=== PATIENT | female | born 1955 | race Caucasian/White ===

== ENCOUNTER 2021-05-17 05:43 | Day surgery (SDC) | payer MEDICARE, BC ==
[2021-05-10 11:11] LABS: BASOPHILS % (AUTO) 0.7 % (0-1); EOSINOPHILS % (AUTO) 0.6 % (0-6); LYMPHOCYTES # (AUTO) 1.5 X10'3 (1.1-4.8); LYMPHOCYTES % (AUTO) 23.9 % (21-51); MEAN CORPUSCULAR HEMOGLOBIN 26.5 PG (27.0-31.0); MEAN CORPUSCULAR HGB CONC 32.7 g/dL (33.0-36.5); MEAN CORPUSCULAR VOLUME 81.2 FL (78-98); MEAN PLATELET VOLUME 9.1 FL (7.4-10.4); MONOCYTES # (AUTO) 0.5 X10'3 (0-0.9); MONOCYTES % (AUTO) 8.4 % (2-12); NEUTROPHILS # (AUTO) 4.2 X10'3 (1.8-7.7); NEUTROPHILS % (AUTO) 66.4 % (42-75); PRE OP HEMATOCRIT 44.9 % (35.0-45.0); PRE OP HEMOGLOBIN 14.7 g/dL (12.0-16.0); PRE OP PLATELET COUNT 291 X10'3 (140-440); RED BLOOD COUNT 5.53 X10'6 (4.20-5.60); RED CELL DISTRIBUTION WIDTH 14.6 % (11.5-14.5)
[2021-05-10 11:44] LABS: ALBUMIN 3.5 G/DL (3.4-5.0); ALKALINE PHOSPHATASE 93 IU/L (46-116); BLOOD UREA NITROGEN 20 MG/DL (7-18); BUN/CREATININE RATIO 25.6 (6.6-38.0); CALCIUM 9.1 MG/DL (8.5-10.1); CHLORIDE 108 MMOL/L (99-107); CREATININE 0.78 MG/DL (0.40-0.90); PRE OP ALT 21 U/L (30-65); PRE OP ANION GAP 7 (8-16); PRE OP AST 12 U/L (10-37); PRE OP BILIRUB, TOTAL 0.3 MG/DL (0.0-1.0); PRE OP GLUCOSE 106 MG/DL (70-104); PRE OP POTASSIUM 4.2 MMOL/L (3.4-5.1); PRE OP SODIUM 143 MMOL/L (135-145); TOTAL CARBON DIOXIDE 28.2 MMOL/L (24-32); TOTAL PROTEIN 7.1 G/DL (6.4-8.2); eGFR 74 ML/MIN
[~2021-05-17] VITALS: Ht 177.8 cm; Wt 106.0 kg
[2021-05-17] VITALS (22 sets, daily range): BP systolic 100–185; BP diastolic 51–100
[~2021-05-17 05:43] MED LIST: LEVO175T2 PO; VANCOMYCIN 1,500MG inj. 1,500 MG in dextrose 5% water 500ml 300 ML IV ONE; acetaminophen 325mg tablet PO ONE; cefazolin/dext.iso 2gm/50ml 50 ML IV ONE; cefazolin/dext.iso 2gm/50ml IV ONE; celeCOXIB 100mg capsule PO ONE; famotidine 20mg tablet PO ONE; gabapentin 300mg capsule PO ONE; metoclopramide 5 mg/ml inj IV ONE; oxyCODONE SR 10mg (sust. release) tab -2 tabs (20mg) PO ONE; ringers solution, lacted 1,000 ML IV SCH; tranexamic acid inj. 1,000 MG in 0.7% saline 100 ML PMX IV ONE
[2021-05-17] MEDS ORDERED: ketorolac trometh. 30mg/ml inj. ONE (06:26)
[2021-05-17] MEDS ORDERED: cloNIDine hcl/PF 100mcg/ml inj ONE (06:26)
[2021-05-17] MEDS ORDERED: ROPIVAcaine 0.5% (5mg/ml) 30ml vial ONE (06:27)
[2021-05-17] MEDS ORDERED: HYDROmorphone inj. 0.5 MG/0.5 ML DISP.SYRIN IV PRN (06:30)
[2021-05-17] MEDS ORDERED: bisacodyl 10mg suppository rectal RC PRN (06:30)
[2021-05-17] MEDS ORDERED: HYDROmorphone 1 mg/ml syringe IV PRN (06:30)
[2021-05-17] MEDS ORDERED: magnesium hydroxide 30ml (MOM) UD suspension PO PRN (06:30)
[2021-05-17] MEDS ORDERED: ondansetron/PF 4mg/2ml inj IV PRN (06:30)
[2021-05-17] MEDS ORDERED: diphenhydrAMINE 25mg capsule PO PRN ×2 (06:30)
[2021-05-17] MEDS ORDERED: HYDROcodone/acetaminophen 10/325mg tab PO PRN (06:30)
[2021-05-17] MEDS ORDERED: acetaminophen 325mg tablet PO PRN (06:30)
[2021-05-17] MEDS ORDERED: BUPIVAcaine/dex-water/PF 7.5 mg/ml 2ml ampul ONE (08:23)
[2021-05-17] MEDS ORDERED: MIDAZolam 1 MG/ML 5ML VIAL ONE (08:26)
[2021-05-17] MEDS ORDERED: propofol inj 20 ML IV ONE ×2 (08:57)
[2021-05-17] MEDS ORDERED: ePHEDrine 50MG/ML INJ. ONE (08:57)
[2021-05-17] MEDS ORDERED: vancomycin 1,000mg inj ONE (09:11)
[2021-05-17] MEDS ORDERED: proCHLORperazine 10 MG/2 ml inj IV PRN (09:50)
[2021-05-17] MEDS ORDERED: morphine 4 MG/ML inj SYRINge IV PRN (09:50)
[2021-05-17] MEDS ORDERED: acetaminophen 1,000mg/100ml IV 100 ML IV PRN (09:50)
[2021-05-17] MEDS ORDERED: meperidine/PF 25mg/ml syringe IV PRN ×3 (09:50)
[2021-05-17] MEDS ORDERED: morphine 2 MG/ML inj. syringe IV PRN (09:50)
[2021-05-17] MEDS ORDERED: ringers solution, lacted 1,000 ML IV SCH (09:50)
[2021-05-17] MEDS ORDERED: proMETHazine 25mg rectal suppository RC PRN (09:50)
--- NOTE | 2021-05-17 10:02 | NUR ---
Received from OR via [facility], accompanied by Anesthesiologist DR BERRIOS and report given by Anesthesiolgist. PT PRESENTS WITH 18G LEFT AC, SHAWN DRESSING WITH POWDER PACK ON RIGHT HIP, VSS. Addendum: 05/17/21 at 1015 by Adrianne Marques RN, RN Amended: Links added.
--- NOTE | 2021-05-17 11:22 | NUR ---
Report called to receiving nurse STACIA ANDUJAR. Transferred via [facility] BED TO ROOM 350B Belongings TAKEN TPO PT ROOM 1 BAG. Special Issues communicated to receiving nurse. Addendum: 05/17/21 at 1135 by Adrianne Marques RN, RN Amended: Links added.
--- NOTE | 2021-05-17 12:09 | NUR ---
Patient arrived to unit from PACU accompanied Nurse and Spouse. Patient is Alert and orientedX4. Vital signs are B/P106/56 R 16 O2 100% T 97.4 Pulses palpated equal bilaterally Patient denies any pain or discomfort at this time.
[2021-05-17] MEDS ORDERED: tranexamic acid 1gm/0.7% sal. 100 ML IV ONE (13:00)
[2021-05-17] MEDS: levoTHYROXINE 175mcg tablet PO SCH (16:00)
[2021-05-17] MEDS ORDERED: aspirin 325mg tablet PO SCH (16:00)
[2021-05-17] MEDS: multivitamins, therapeutics tablet PO SCH (16:42)
[2021-05-17] MEDS: cefazolin/dext.iso 2gm/50ml 50 ML IV SCH ×2 (16:43→23:46)
[2021-05-17] MEDS ORDERED: VANCOMYCIN 1,500MG inj. 1,500 MG in dextrose 5% water 500ml 300 ML IV SCH (19:00)
[2021-05-17] MEDS: HYDROcodone/acetaminophen 10/325mg tab PO PRN (19:51)
[2021-05-17] MEDS: ascorbic acid 500mg tablet PO SCH (19:51)
[2021-05-17] MEDS: potassium cl 20mEq in 1/2 NS 1,000 ML IV SCH ×2 (19:56→22:30)
[2021-05-17] MEDS ORDERED: sennosides 8.6mg tablet PO SCH (21:00)
[2021-05-17] MEDS: gabapentin 300mg capsule PO SCH (21:24)
[2021-05-18 00:12] VITALS: BP 123/49
[2021-05-18 04:00] VITALS: BP 134/66
[2021-05-18] MEDS: HYDROcodone/acetaminophen 10/325mg tab PO PRN (05:02)
--- NOTE | 2021-05-18 05:49 | NUR ---
late entry 05/17/21 7813 surgical brace applied
[2021-05-18] MEDS: potassium cl 20mEq in 1/2 NS 1,000 ML IV SCH (06:30)
[2021-05-18 06:43] LABS: BASOPHILS % (AUTO) 0.4 % (0-1); EOSINOPHILS # (AUTO) 0.2 X10'3 (0-0.9); EOSINOPHILS % (AUTO) 2.8 % (0-6); HEMATOCRIT 39.1 % (35.0-45.0); HEMOGLOBIN 12.7 g/dl (12.0-16.0); LYMPHOCYTES # (AUTO) 1.1 X10'3 (1.1-4.8); LYMPHOCYTES % (AUTO) 20.8 % (21-51); MEAN CORPUSCULAR HEMOGLOBIN 26.7 PG (27.0-31.0); MEAN CORPUSCULAR HGB CONC 32.6 g/dL (33.0-36.5); MEAN CORPUSCULAR VOLUME 81.9 FL (78-98); MEAN PLATELET VOLUME 9.6 FL (7.4-10.4); MONOCYTES # (AUTO) 0.7 X10'3 (0-0.9); MONOCYTES % (AUTO) 12.6 % (2-12); NEUTROPHILS # (AUTO) 3.5 X10'3 (1.8-7.7); NEUTROPHILS % (AUTO) 63.4 % (42-75); PLATELET COUNT 221 X10'3 (140-440); RED BLOOD COUNT 4.77 X10'6 (4.20-5.60); RED CELL DISTRIBUTION WIDTH 14.5 % (11.5-14.5); WHITE BLOOD COUNT 5.5 X10'3 (4.5-11.0)
[2021-05-18 07:00] VITALS: BP 131/58
[2021-05-18] MEDS: ascorbic acid 500mg tablet PO SCH (07:10)
[2021-05-18] MEDS: gabapentin 300mg capsule PO SCH (07:10)
[2021-05-18] MEDS: multivitamins, therapeutics tablet PO SCH (07:11)
[2021-05-18] MEDS: levoTHYROXINE 175mcg tablet PO SCH (07:11)
[2021-05-18 07:17] LABS: ANION GAP 4 (8-16); CHLORIDE 109 MMOL/L (99-107); POTASSIUM 4.4 MMOL/L (3.5-5.1); SODIUM 142 MMOL/L (135-145)
[2021-05-18] MEDS ORDERED: proCHLORperazine 5mg tablet PO PRN (07:25)
[2021-05-18 08:31] VITALS: BP 131/58
--- NOTE | 2021-05-18 10:04 | NUR ---
Discharge papers reviewed with patient. Belongings gathered and reviewed with patient. IV removed, catheter tip intact. Safety measures met. Post-op discharge instructions reviewed.
[2021-05-18] MEDS ORDERED: celeCOXIB 100mg capsule PO SCH (20:00)
[2021-05-18] MEDS ORDERED: enoxaparin 40mg/0.4ml syringe SUBCUT SCH (20:00)
== END 2021-05-18 10:07 | disposition home or self-care (01) ==
LOC: PAS 05:43 → SUR 3N 06:30 → PAS 05-18 10:07
PROVIDERS: ATTEND Orthopaedic Surgery
DX: M16.11 Unilateral primary osteoarthritis, right hip (principal); F41.1 Generalized anxiety disorder; M17.0 Bilateral primary osteoarthritis of knee; E66.09 Other obesity due to excess calories; Z68.33 Body mass index [BMI] 33.0-33.9, adult; Z20.822 Contact with and (suspected) exposure to COVID-19; Z79.899 Other long term (current) drug therapy; Z88.8 Allergy status to other drugs, medicaments and biological substances; Z88.5 Allergy status to narcotic agent; Z96.653 Presence of artificial knee joint, bilateral; Z98.1 Arthrodesis status; Z98.890 Other specified postprocedural states; Z72.89 Other problems related to lifestyle
CPT/HCPCS: 27130; 36415; 72170; 80051; 80053; 82948; 84443; 85025; 86885; 86900; 86901; 87081; 97110; 97161; 97530; C1776; J0690; J0735; J1170; J1885; J2250; J2704; J2765; J2795; J3370; J3480; J3490; J7030; J7060; J7120; Q0164; U0003; U0005; Z7506; Z7508; Z7512; A7000; G0378; J7040

== ENCOUNTER 2021-12-09 10:17 | Emergency (ER) | payer MEDICARE, BC ==
[~2021-12-09] VITALS: Ht 177.8 cm; Wt 107.7 kg
[~2021-12-09 10:17] MED LIST changes: -VANCOMYCIN 1,500MG inj. 1,500 MG in dextrose 5% water 500ml 300 ML IV ONE; -acetaminophen 325mg tablet PO ONE; -cefazolin/dext.iso 2gm/50ml 50 ML IV ONE; -cefazolin/dext.iso 2gm/50ml IV ONE; -celeCOXIB 100mg capsule PO ONE; -famotidine 20mg tablet PO ONE; -gabapentin 300mg capsule PO ONE; -metoclopramide 5 mg/ml inj IV ONE; -oxyCODONE SR 10mg (sust. release) tab -2 tabs (20mg) PO ONE; -ringers solution, lacted 1,000 ML IV SCH; -tranexamic acid inj. 1,000 MG in 0.7% saline 100 ML PMX IV ONE
[2021-12-09 10:41] VITALS: BP 150/64
== END 2021-12-09 14:25 | disposition home or self-care (01) ==
LOC: ER 10:18
DX: M54.2 Cervicalgia (principal); M25.551 Pain in right hip; M25.511 Pain in right shoulder; M25.561 Pain in right knee; E03.9 Hypothyroidism, unspecified; G89.29 Other chronic pain; M54.9 Dorsalgia, unspecified; Z98.890 Other specified postprocedural states; Z88.6 Allergy status to analgesic agent; Z88.8 Allergy status to other drugs, medicaments and biological substances; Z79.899 Other long term (current) drug therapy; Z88.5 Allergy status to narcotic agent
CPT/HCPCS: 72040; 73502; 99284